=== PATIENT | male | born 1980 | race African-American/Black ===

== ENCOUNTER 2018-01-28 09:24 | Emergency (ER) | payer MEDICAID ==
[~2018-01-28] VITALS: Ht 177.8 cm; Wt 108.9 kg
[2018-01-28 09:35] VITALS: BP 143/103
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
[2018-01-28] MEDS ORDERED: TRAMADOL HCL50 MG ORAL (09:44)
[2018-01-28] MEDS ORDERED: IBUPROFEN600 MG ORAL (09:44)
[2018-01-28] MEDS ORDERED: ROBAXIN500 MG PO (09:45)
[2018-01-28 09:58] VITALS: BP 137/92
== END 2018-01-28 10:02 | disposition home or self-care (01) ==
LOC: EMR 10:01
DX: S13.4XXA Sprain of ligaments of cervical spine, initial encounter (principal); S39.012A Strain of muscle, fascia and tendon of lower back, initial encounter; V43.92XA Unspecified car occupant injured in collision with other type car in traffic accident, initial encounter; Y92.410 Unspecified street and highway as the place of occurrence of the external cause
CPT/HCPCS: 99284